=== PATIENT | female | born 1965 | race American Indian/Alaskan Native ===

== ENCOUNTER 2018-03-25 12:04 | Outpatient (CLI) | payer OTHER | END 2018-03-25 12:05 | disposition home or self-care (01) | LOC: VAS 12:04 | PROVIDERS: ATTEND Podiatrist Foot & Ankle Surgery | DX: M79.89 Other specified soft tissue disorders (principal); M79.662 Pain in left lower leg ==

== ENCOUNTER 2020-07-17 09:44 | Emergency (ER) | payer OTHER ==
[2020-07-17 10:07] VITALS: BP 122/67
--- NOTE | 2020-07-17 10:21 | Emergency Department Report ---
Chief Complaint: Animal Bite Stated Complaint: INSECT BITE - HPI History of Present Illness: 54-year-old -[place] female presents to the emergency room for 3-week history of high per pigmented area on her left next thinking that a bug may have bit her 3 weeks ago. Patient denies any pain but states is intermittently itches. She has not followed up with her primary care doctor. Does not complain of any pain. Does not complain of any redness. - Exam Vital Signs: Vital Signs 07/17/20 10:04 Temperature 97.9 F Pulse Rate 56 L Respiratory 18 Rate Blood Pressure 122/67 O2 Sat by Pulse 96 Oximetry Physical Exam: Gen: alert oriented NAD Neck: Full range of motion nontender to palpate mild hyperpigmented skin on the left lateral. Cardic: regular rate and rhythm no murmurs appreciated Resp: Clear to auscultation bilateral no wheezing no rales or rhonchi. Abdomen: Soft nontender nondistended normal bowel sounds. Ambulatory without difficulties MSE screening note: Focused history and physical exam performed. Due to findings the following was ordered: 54-year-old -[place] female presents to the emergency room for 3-week history of high per pigmented area on her left next thinking that a bug may have bit her 3 weeks ago. Patient denies any pain but states is intermittently itches. She has not followed up with her primary care doctor. Does not complain of any pain. Does not complain of any redness. ED Disposition for MSE Disposition: Z-07 MED SCREENING EXAM-LEFT Is pt being admited?: No Does the pt Need Aspirin: No Condition: Stable Additional Instructions: Follow up with your Primary Care Provider. Referrals: Your,Primary Care Provider [Other] - 3-5 Days Forms: Work/School Release Form(ED)
== END 2020-07-17 12:17 | disposition left against medical advice (07) ==
LOC: ED 09:44
DX: L29.9 Pruritus, unspecified (principal); Z53.21 Procedure and treatment not carried out due to patient leaving prior to being seen by health care provider